=== PATIENT | female | born 1955 | race Caucasian/White ===

== ENCOUNTER → 2023-08-16 | Outpatient (CLI) | payer MEDICARE, OTHER ==
--- NOTE | 2023-08-16 17:58 | BD ---
EXAMINATION TYPE: Axial Bone Density DATE OF EXAM: 08/16/2023 CLINICAL HISTORY: 68 years old Female. ICD-10 CODE: M85.9 DISORDER OF BONE DENSITY Height: 5 ft 2 1/ 4in Weight: 175 FRAX RISK QUESTIONS: Alcohol (3 or more units per day): no Family History (Parent hip fracture): no Glucocorticoids (More than 3mos): no (Ex: prednisone, prednisolone, methylprednisolone, dexamethasone, and hydrocortisone). History of Fracture in Adulthood: yes Secondary Osteoporosis: 1. Type 1 Diabetes: type 2 2. Hyperthyroidism: no 3. Menopause before 45: unsure 4. Malnutrition: no 5. Chronic liver disease: no Rheumatoid Arthritis: no Current Tobacco Use: no RISK FACTORS HISTORY OF: Surgery to Spine/Hip(right/left)/Wrist (right/left): mono hip replacements When: MEDICATIONS: Thyroid Medications: none Osteoporosis Medications: none EXAM MEASUREMENTS: Bone mineral densitometry was performed using the [employer] System. Bone mineral density as measured about the Lumbar spine is: ----- L1-L4(G/cm2): 1.165 T Score Values are as follows: ----- L1: -0.5 ----- L2: -1.2 ----- L3: 1.0 ----- L4: -0.1 ----- L1-L4: -0.1 Z Score Values are as follows: ----- L1: 0.7 ----- L2: -0.1 ----- L3: 2.2 ----- L4: 1.1 ----- L1-L4: 1.0 baseline Bone mineral density about the L Wrist (g/cm2): 0.613 T Score values are as follows: -----Dist. R+U: -1.7 -----Prox. R+U: -0.4 -----Radius total: -1.0 Z Score values are as follows: -----Dist. R+U: -0.1 -----Prox. R+U: 1.2 -----Radius total: 0.6 baseline no FRAX IMPRESSION: Normal (Values between +1 and -1 indicate normal bone mass). Consider repeating this study in 5 year s or sooner if there is some new clinical indication. NOTE: T-SCORE=SD OF THE YOUNG ADULT MEAN.
--- NOTE | 2023-08-20 19:07 | MM ---
Reason for Exam: Screening (asymptomatic). Last mammogram was performed 1 year(s) and 2 month(s) ago. Patient History: Menarche at age 12. First Full-Term at age 19. Hysterectomy at age 40. Maternal grandmother had breast cancer at or over age 50. Maternal aunt had breast cancer at or over age 50. Mother had breast cancer at or over age 50. Risk Values: Dari 5 year model risk: 3.2%. NCI Lifetime model risk: 10.1%. Prior Study Comparison: 04/08/2020 Bilateral Screening Mammogram, [facility]. 06/13/2021 Bilateral Screening Mammogram, [facility]. 06/16/2022 Bilateral Screening Mammogram, [facility]. Tissue Density: There are scattered fibroglandular densities. Findings: Analyzed By CAD. Microclip right breast from prior biopsy. There are benign bilateral oil cyst calcifications noted. There is no suspicious group of microcalcifications or new suspicious mass in either breast. Overall Assessment: Benign, BI-RAD 2 Management: Screening Mammogram of both breasts in 1 year. See note below in regards to patient's increased 5 year Dari score. Patient should continue monthly self-breast exams. A clinical breast exam by your physician is recommended on an annual basis. This exam should not preclude additional follow-up of suspicious palpable abnormalities. Note on Dari scores and lifetime risk: 1. A Dari score greater than 3% is considered moderate risk. If this is the case, consider specialist referral to assess eligibility for a risk reducing agent. 2. If overall lifetime risk for the development of breast cancer is 20% or higher, the patient may qualify for future screening with alternating mammogram and breast MRI. Electronically signed and approved by: Jose Alfredo Figueroa M.D. Radiologist
== END | disposition home or self-care (01) ==
LOC: RADMAMWWP 13:59
PROVIDERS: ATTEND Family Medicine
DX: Z12.31 Encounter for screening mammogram for malignant neoplasm of breast (principal); M85.89 Other specified disorders of bone density and structure, multiple sites; Z80.3 Family history of malignant neoplasm of breast; Z78.0 Asymptomatic menopausal state
CPT/HCPCS: 77063; 77067; 77080

== ENCOUNTER → 2024-07-28 | Outpatient (CLI) | payer MEDICARE ==
--- NOTE | 2024-07-29 12:30 | XR ---
EXAMINATION TYPE: XR sinus DATE OF EXAM: 07/28/2024 4:04 PM COMPARISON: None. CLINICAL INDICATION: Female, 69 years old with history of S00.35XA FOREIGN OBJECT IN NOSE, pain TECHNIQUE: Lice[place], [place], and lateral image of the skull are obtained. FINDINGS: The paranasal sinuses including the frontal and maxillary sinuses appear well aerated witho ut distinct abnormal opacification. Orbital floors and subramanian are intact. No suspicious opacificatio n of mastoid air cells bilaterally. Nasal septum fairly well maintained in the midline. No obvious r adiodense foreign body seen. Correlation with direct visualization is advised. IMPRESSION: As above. [facility], , 07/29/2024 12:28 PM
== END | disposition home or self-care (01) ==
LOC: RADXRMAIN 15:20
PROVIDERS: ATTEND Otolaryngology
DX: S00.35XA Superficial foreign body of nose, initial encounter (principal); X58.XXXA Exposure to other specified factors, initial encounter
CPT/HCPCS: 70220